=== PATIENT | female | born 1940 | race Caucasian/White ===

== ENCOUNTER 2017-06-28 13:52 | Emergency (ER) | payer MEDICARE ==
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
[2017-06-28] MEDS ORDERED: AZITHROMYCIN 500 MG TABLET PO ONE (15:09)
[2017-06-28] MEDS ORDERED: BENZONATATE 100 MG CAPSULE PO ONE ×2 (16:12)
[2017-06-28] MEDS ORDERED: FUROSEMIDE IV 20MG/2ML VIAL IVP ONE (16:40)
[2017-06-28 16:53] LABS: BASO % 0.3 % (0-6); EOS % 0.6 % (0-6); GRAN % 76.7 % (47-80); HEMATOCRIT 39.3 % (35.0-47.0); HEMOGLOBIN 12.1 gm/dl (11.6-16.0); LYMPH % 10.5 % (16-45); MEAN CELL VOLUME 88.5 fl (81-97); MEAN CORPUSCULAR HEMOGLOBIN 27.3 pg (27-33); MEAN CORPUSCULAR HGB CONC 30.8 g/dl (32-36); MEAN PLATELET VOLUME 11.7 fl (7.4-10.4); MONO % 11.9 % (0-9); PLATELET COUNT 322 K/uL (130-400); RED BLOOD COUNT 4.44 M/uL (3.80-5.40); RED CELL DISTRIBUTION WIDTH 15.1 % (11.5-14.5); WHITE BLOOD COUNT W/O DIFF 17.1 K/uL (4.2-12.2)
[2017-06-28 17:03] LABS: BLOOD UREA NITROGEN 16 mg/dL (8-23)
[2017-06-28 17:04] LABS: CREATININE 0.8 mg/dL (0.5-0.9); EST GLOMERULAR FILTRATION RATE > 60 mL/min
[2017-06-28 17:06] LABS: GLUCOSE,RANDOM 107 mg/dL (74-109)
--- NOTE | 2017-06-30 07:59 | RADIOLOGY REPORT ---
EXAM: CHEST, SINGLE AP PORTABLE VIEW HISTORY: PATIENT HAS HAD A COUGH TIMES THREE WEEKS. TECHNIQUE: A single AP portable view of the chest was provided along with the comparison study dated 10/07/08. FINDINGS: Cardiomegaly is noted. There is pulmonary vascular equalization. Interstitial prominence is noted bilaterally. These findings suggest mild congestive heart failure. No focal consolidation, pleural effusion or pneumothorax is noted. IMPRESSION: FINDINGS ARE SUGGESTIVE OF MILD CONGESTIVE HEART FAILURE. JOB NUMBER: [id number] [facility]
== END 2017-06-28 20:00 | disposition short-term general hospital (02) ==
LOC: ER 13:52
DX: I50.9 Heart failure, unspecified (principal); I48.2 Chronic atrial fibrillation; R06.00 Dyspnea, unspecified; Z79.01 Long term (current) use of anticoagulants; Z87.891 Personal history of nicotine dependence
CPT/HCPCS: 71045; 71046; 80048; 83880; 84484; 85025; 93005; 93010; 96374; 99285; J1940

== ENCOUNTER 2017-07-15 11:33 | Emergency (ER) | payer MEDICARE ==
--- NOTE | 2017-07-15 12:29 | Emergency Department Record ---
History of Present Illness - General Chief Complaint: Ankle/Foot Injury Stated Complaint: ANKLE INJURY Time Seen by Provider: 07/15/17 11:52 Source: Patient, RN notes reviewed Mode of Arrival: Ambulatory - History of Present Illness Initial Comments: left ankle pain and she twisted it and fell 2 days ago and she is walking on it. Complaint: Ankle injury Onset/Timin -: Days(s) Type of Injury: Blunt Place: Home Severity: Mild Severity scale (1-10): 1 Improves With: Nothing Worsens With: Weight bearing Context: Fall - Related Data Home Medications Medication Instructions Recorded Confirmed Last Taken Metoprolol Tartrate [Lopressor] 50 mg PO BID 07/15/17 07/15/17 07/15/17 Allergies Allergy/AdvReac Type Severity Reaction Status Date / Time nickel Allergy RASH Verified 07/15/17 11:49 Penicillins Allergy HIVES Verified 06/28/17 13:55 Travel Screening - Travel/Exposure Within Last 30 Days Have you traveled within the last 30 days?: No - Travel/Exposure Within Last Year Have you traveled outside the [place] in the last year?: No - Additonal Travel Details Have you been exposed to anyone with a communicable illness?: No Review of Systems Reviewed: No additional complaints except as noted below Constitutional: Reports: As per HPI. Denies: Chills, Fever, Malaise, Night sweats, Weakness, Weight change Eyes: Reports: As per HPI. Denies: Eye discharge, Eye pain, Photophobia, Vision change ENT: Reports: As per HPI. Denies: Congestion, Dental pain, Ear pain, Epistaxis , Hearing loss, Throat pain Respiratory: Reports: As per HPI. Denies: Cough, Dyspnea, Hemoptysis, Stridor, Wheezes Cardiovascular: Reports: As per HPI. Denies: Arrhythmia, Chest pain, Dyspnea on exertion, Edema, Murmurs, Orthopnea, Palpitations, Paroxysmal nocturnal dyspnea, Rheumatic Fever, Syncope Endocrine: Reports: As per HPI. Denies: Fatigue, Heat or cold intolerance, Polydipsia, Polyuria Gastrointestinal: Reports: As per HPI. Denies: Abdominal pain, Constipation, Diarrhea, Hematemesis, Hematochezia, Melena, Nausea, Vomiting Genitourinary: Reports: As per HPI. Denies: Abnormal menses, Discharge, Dyspareunia, Dysuria, Frequency, Hematuria, Incontinence, Retention, Urgency Musculoskeletal: Reports: As per HPI. Denies: Arthralgia, Back pain, Gout, Joint swelling, Myalgia, Neck pain Skin: Reports: As per HPI. Denies: Bruising, Change in color, Change in hair/ nails, Lesions, Pruritus, Rash Neurological: Reports: As per HPI. Denies: Abnormal gait, Confusion, Headache, Numbness, Paresthesias, Seizure, Tingling, Tremors, Vertigo, Weakness Psychiatric: Reports: As per HPI. Denies: Anxiety, Auditory hallucinations, Depression, Homicidal thoughts, Suicidal thoughts, Visual hallucinations Hematological/Lymphatic: Reports: As per HPI. Denies: Anemia, Blood Clots, Easy bleeding, Easy bruising, Swollen glands Past Medical History - SOCIAL HISTORY Smoking Status: Never smoker Alcohol Use: Rare Drug Use: None - RESPIRATORY Hx Respiratory Disorders: No - CARDIOVASCULAR Hx Cardio Disorders: Yes Hx Irregular Heartbeat: Yes (A Fib) - NEURO Hx Neuro Disorders: Yes Comment:: Spinal stenosis - GI Hx GI Disorders: No - Hx Genitourinary Disorders: No - ENDOCRINE Hx Endocrine Disorders: No - MUSCULOSKELETAL Hx Musculoskeletal Disorders: Yes Hx Arthritis: Yes - PSYCH Hx Psych Problems: No - HEMATOLOGY/ONCOLOGY Hx Hematology/Oncology Disorders: Yes Comment:: basal cell Family Medical History Any Significant Family History?: No Physical Exam - General General Appearance: Alert, Oriented x3, Cooperative, No acute distress - Head Head exam: Normal inspection - Eye Eye exam: Normal appearance, PERRL Pupils: Normal accommodation - ENT ENT exam: Normal exam, Mucous membranes moist, Normal external ear exam, Normal orophraynx, TM's normal bilaterally Ear exam: Normal external inspection. negative: External canal tenderness Nasal Exam: Normal inspection. negative: Discharge, Sinus tenderness Mouth exam: Normal external inspection, Tongue normal Teeth exam: Normal inspection. negative: Dental caries Throat exam: Normal inspection. negative: Tonsillar erythema, Tonsillar exudate - Neck Neck exam: Normal inspection, Full ROM. negative: Tenderness - Respiratory Respiratory exam: Normal lung sounds bilaterally. negative: Respiratory distress - Cardiovascular Cardiovascular Exam: Regular rate, Normal rhythm, Normal heart sounds - GI/Abdominal GI/Abdominal exam: Soft, Normal bowel sounds. negative: Tenderness - Rectal Rectal exam: Deferred - exam: Deferred - Extremities Extremities exam: Joint swelling, Normal capillary refill, Tenderness (left ankle pain and swelling) - Back Back exam: Reports: Normal inspection, Full ROM. Denies: Muscle spasm, Rash noted, Tenderness - Neurological Neurological exam: Alert, Normal gait, Oriented X3, Reflexes normal - Psychiatric Psychiatric exam: Normal affect, Normal mood - Skin Skin exam: Dry, Intact, Normal color, Warm Course Vital Signs 07/15/17 11:40 Pulse Rate 82 Respiratory 16 Rate Blood Pressure 110/61 Pulse Ox 96 - Reevaluation(s) Reevaluation #1: 07/15/17 14:42 air cast with a post op shoe use a walker to get around Disposition Clinical Impression: Left ankle sprain Qualifiers: Encounter type: initial encounter Involved ligament of ankle: unspecified ligament Qualified Code(s): S93.402A - Sprain of unspecified ligament of left ankle, initial encounter Foot fracture, left Qualifiers: Encounter type: initial encounter Fracture type: closed Qualified Code(s): S92.902A - Unspecified fracture of left foot, initial encounter for closed fracture Disposition: Home, Self-Care Instructions: Ankle Sprain (ED), Foot Fracture in Adults (ED) Additional Instructions: follow up with Dr. Little in 7 days tylenol for pain Forms: Patient Portal Access Time of Disposition: 14:43 Quality - Quality Measures Quality Measures: N/A - Blood Pressure Screening Does Patient Have Any of the Following: No Blood Pressure Classification: Normal BP Reading Systolic Measurement: 110 Diastolic Measurement: 61 Screening for High Blood Pressure: < Normal BP, F/U Not Required > [G8783]
--- NOTE | 2017-07-15 14:52 | Emergency Department Record ---
History of Present Illness - General Chief Complaint: Ankle/Foot Injury Stated Complaint: ANKLE INJURY Time Seen by Provider: 07/15/17 11:52 Source: Patient, RN notes reviewed Mode of Arrival: Ambulatory - History of Present Illness Onset/Timin -: Days(s) Type of Injury: Blunt Place: Home Severity: Mild Severity scale (1-10): 1 Improves With: Nothing Worsens With: Weight bearing Context: Fall - Related Data Home Medications Medication Instructions Recorded Confirmed Last Taken Metoprolol Tartrate [Lopressor] 50 mg PO BID 07/15/17 07/15/17 07/15/17 Allergies Allergy/AdvReac Type Severity Reaction Status Date / Time nickel Allergy RASH Verified 07/15/17 11:49 Penicillins Allergy HIVES Verified 06/28/17 13:55 Travel Screening - Travel/Exposure Within Last 30 Days Have you traveled within the last 30 days?: No - Travel/Exposure Within Last Year Have you traveled outside the [place] in the last year?: No - Additonal Travel Details Have you been exposed to anyone with a communicable illness?: No Review of Systems Constitutional: Reports: As per HPI. Denies: Chills, Fever, Malaise, Night sweats, Weakness, Weight change Eyes: Reports: As per HPI. Denies: Eye discharge, Eye pain, Photophobia, Vision change ENT: Reports: As per HPI. Denies: Congestion, Dental pain, Ear pain, Epistaxis , Hearing loss, Throat pain Respiratory: Reports: As per HPI. Denies: Cough, Dyspnea, Hemoptysis, Stridor, Wheezes Cardiovascular: Reports: As per HPI. Denies: Arrhythmia, Chest pain, Dyspnea on exertion, Edema, Murmurs, Orthopnea, Palpitations, Paroxysmal nocturnal dyspnea, Rheumatic Fever, Syncope Endocrine: Reports: As per HPI. Denies: Fatigue, Heat or cold intolerance, Polydipsia, Polyuria Gastrointestinal: Reports: As per HPI. Denies: Abdominal pain, Constipation, Diarrhea, Hematemesis, Hematochezia, Melena, Nausea, Vomiting Genitourinary: Reports: As per HPI. Denies: Abnormal menses, Discharge, Dyspareunia, Dysuria, Frequency, Hematuria, Incontinence, Retention, Urgency Musculoskeletal: Reports: As per HPI. Denies: Arthralgia, Back pain, Gout, Joint swelling, Myalgia, Neck pain Skin: Reports: As per HPI. Denies: Bruising, Change in color, Change in hair/ nails, Lesions, Pruritus, Rash Neurological: Reports: As per HPI. Denies: Abnormal gait, Confusion, Headache, Numbness, Paresthesias, Seizure, Tingling, Tremors, Vertigo, Weakness Psychiatric: Reports: As per HPI. Denies: Anxiety, Auditory hallucinations, Depression, Homicidal thoughts, Suicidal thoughts, Visual hallucinations Hematological/Lymphatic: Reports: As per HPI. Denies: Anemia, Blood Clots, Easy bleeding, Easy bruising, Swollen glands Past Medical History - SOCIAL HISTORY Smoking Status: Never smoker Alcohol Use: Rare Drug Use: None - RESPIRATORY Hx Respiratory Disorders: No - CARDIOVASCULAR Hx Cardio Disorders: Yes Hx Irregular Heartbeat: Yes (A Fib) - NEURO Hx Neuro Disorders: Yes Comment:: Spinal stenosis - GI Hx GI Disorders: No - Hx Genitourinary Disorders: No - ENDOCRINE Hx Endocrine Disorders: No - MUSCULOSKELETAL Hx Musculoskeletal Disorders: Yes Hx Arthritis: Yes - PSYCH Hx Psych Problems: No - HEMATOLOGY/ONCOLOGY Hx Hematology/Oncology Disorders: Yes Comment:: basal cell Family Medical History Any Significant Family History?: No Course Vital Signs 07/15/17 11:40 Pulse Rate 82 Respiratory 16 Rate Blood Pressure 110/61 Pulse Ox [address] Little and he wants to see her in one week. Disposition Clinical Impression: Left ankle sprain Qualifiers: Encounter type: initial encounter Involved ligament of ankle: unspecified ligament Qualified Code(s): S93.402A - Sprain of unspecified ligament of left ankle, initial encounter Foot fracture, left Qualifiers: Encounter type: initial encounter Fracture type: closed Qualified Code(s): S92.902A - Unspecified fracture of left foot, initial encounter for closed fracture Disposition: Home, Self-Care Instructions: Ankle Sprain (ED), Foot Fracture in Adults (ED) Additional Instructions: follow up with Dr. Little in 7 days on tylenol for pain Forms: Patient Portal Access Time of Disposition: 14:51 Quality - Quality Measures Quality Measures: N/A - Blood Pressure Screening Does Patient Have Any of the Following: No Blood Pressure Classification: Normal BP Reading Systolic Measurement: 110 Diastolic Measurement: 61 Screening for High Blood Pressure: < Normal BP, F/U Not Required > [G8783]
--- NOTE | 2017-07-16 08:55 | RADIOLOGY REPORT ---
EXAM: LEFT ANKLE, THREE VIEWS HISTORY: PATIENT FELL THREE DAYS AGO WITH LEFT ANKLE PAIN AND SWELLING. TECHNIQUE: Three views of the left ankle were obtained. Comparison: None. Encounter: Initial. FINDINGS: There is diffuse soft tissue swelling about the ankle. No definite acute fracture or dislocation of the left ankle identified. There is a small cleft at the base of the fifth metatarsal. This is quite small and radiographically indeterminate. This may be developmental, but a small avulsion fracture from the base of the fifth metatarsal cannot be excluded and correlation with point tenderness suggested. If clinically warranted this could be further assessed with a left foot series along with a comparison oblique view of the right foot. There are prominent calcaneal spurs both posteriorly and along the plantar surface. Some spurring along the superior margin of the tarsal navicular as well. IMPRESSION: 1. DIFFUSE SOFT TISSUE SWELLING AT THE ANKLE. NO DEFINITE ANKLE FRACTURE EVIDENT. 2. POSSIBLE SMALL AVULSION FRACTURE AT THE BASE OF THE FIFTH METATARSAL. 3. PROMINENT CALCANEAL SPURS. 4. SOME SPURRING ALONG THE SUPERIOR MARGIN OF THE TARSAL NAVICULAR WELL. JOB NUMBER: [id number] [facility]
--- NOTE | 2017-07-16 10:21 | RADIOLOGY REPORT ---
EXAM: LEFT FOOT HISTORY: PATIENT FELL THREE DAYS AGO WITH POSSIBLE FRACTURE AT THE BASE OF THE LEFT FIFTH METATARSAL ON ANKLE SERIES FROM TODAY, LEFT FOOT X-RAY REQUESTED FOR FURTHER EVALUATION. TECHNIQUE: Three views of the left foot were obtained. Comparison: No prior left foot series, but comparison is made with the left ankle series from today. Encounter: Initial. FINDINGS: There is a cleft at the base of the left fifth metatarsal. The orientation of this cleft is suggestive of an essentially undisplaced fracture rather than just a developmental variant. Correlation with point tenderness suggested. In addition, there appears to be an additional linear essentially undisplaced fracture of the shaft of the fifth metatarsal extending from at least the mid shaft distally to the lateral aspect of the distal fifth metatarsal metaphyseal region. Some soft tissue swelling is seen overlying the foot particularly at the level of the metatarsals. Prominent calcaneal spurs as noted in the ankle series and also some spurring along the superior margin of the tarsal navicular as noted in the ankle series today. There is also a suggestion of a small fracture at the tip of the lateral malleolus on this left foot series including on the AP view and also on the lateral view. This, however, was not clearly seen on the ankle series itself and correlation with point tenderness at the tip of the lateral malleolus is suggested. IMPRESSION: 1. APPEARANCE CONSISTENT WITH A MINIMALLY DISPLACED FRACTURE AT THE BASE OF THE FIFTH METATARSAL AND AN ESSENTIALLY UNDISPLACED FRACTURE OF THE SHAFT OF THE FIFTH METATARSAL EXTENDING INTO THE DISTAL METAPHYSEAL REGION. 2. SOFT TISSUE SWELLING OVERLYING THE METATARSALS. 3. PROMINENT CALCANEAL SPURS. 4. QUESTIONABLE FRACTURED TIP OF THE LATERAL MALLEOLUS AND CORRELATION WITH POINT TENDERNESS IS SUGGESTED. JOB NUMBER: [id number] AND [id number] [facility]
== END 2017-07-15 15:07 | disposition home or self-care (01) ==
LOC: ER 11:33
DX: S92.902A Unspecified fracture of left foot, initial encounter for closed fracture (principal); S93.402A Sprain of unspecified ligament of left ankle, initial encounter; W10.9XXA Fall (on) (from) unspecified stairs and steps, initial encounter; Y92.009 Unspecified place in unspecified non-institutional (private) residence as the place of occurrence of the external cause; I48.91 Unspecified atrial fibrillation; Z79.01 Long term (current) use of anticoagulants
CPT/HCPCS: 99283